=== PATIENT | female | born 1960 | race Asian ===

== ENCOUNTER 2023-02-10 20:50 | Emergency (ER) | payer SELFPAY ==
[~2023-02-10] VITALS: Ht 165.1 cm; Wt 54.4 kg
--- NOTE | 2023-02-10 21:15 | NUR ---
BIBFAMILY C/O HIGH BLOOD PRESSURE, DO NOT TAKE BP MEDS AT HOME
[2023-02-10 22:02] LABS: BASOPHILS % (AUTO) 0.7 % (0.0-2.0); HEMATOCRIT 44 % (33-45); HEMOGLOBIN 14.7 g/dL (11.5-14.8); LYMPHOCYTES # (AUTO) 1.6 K/uL (0.8-4.8); LYMPHOCYTES % (AUTO) 25.4 % (20.0-44.0); MEAN CORPUSCULAR HGB CONC 33 g/dl (31.0-36.0); MEAN CORPUSCULAR VOLUME 92 fL (82-100); MONOCYTES # (AUTO) 0.4 K/uL (0.1-1.30); MONOCYTES % (AUTO) 6.7 % (2.0-12.0); NEUTROPHILS # (AUTO) 4.1 K/uL (1.8-8.9); NEUTROPHILS % (AUTO) 66.2 % (43.0-81.0); PLATELET COUNT (AUTO) 264 K/uL (150-450); RED BLOOD CELL COUNT(AUTO) 4.83 MIL/uL (4.0-5.2); WHITE BLOOD COUNT (AUTO) 6.2 K/uL (4.3-11.0)
--- NOTE | 2023-02-10 22:10 | NUR ---
BP now down to 188/89. HR:75
[2023-02-10] MEDS ORDERED: hydrALAZINE HCL IV 20 MG VIAL IV ONE (22:30)
[2023-02-10 22:35] LABS: CALCIUM, SERUM 9.4 mg/dL (8.5-10.1); CARBON DIOXIDE 26 mmol/L (21-32); CHLORIDE 97 mmol/L (98-107); CREATININE 0.5 mg/dL (0.6-1.3); GLUCOSE 104 mg/dL (74-106); POTASSIUM 4.2 mmol/L (3.5-5.1); SODIUM SERUM 133 mmol/L (136-145); UREA NITROGEN, BLOOD 11 mg/dL (7-18)
[2023-02-10] MEDS ORDERED: hydrALAZINE HCL IV 20 MG VIAL ONE (22:46)
[2023-02-10] MEDS ORDERED: WATER FOR INJECTION,STERILE 10 ML ONE (22:49)
[2023-02-10] MEDS ORDERED: AMLO10TA4 PO (23:14)
--- NOTE | 2023-02-10 23:41 | NUR ---
Rewdness to bilateral palms noted and pt c/o of rt eye twitching. Dr. Wade aware. Benardryl po benadryl ordered and order carried out.
[2023-02-10] MEDS ORDERED: diphenhydrAMINE HCL 25 MG CAPSULE ONE (23:47)
[2023-02-11] MEDS ORDERED: DIPHENHYDRAMINE HCL 12.5 MG/5 ML UDC PO ONE
[2023-02-11 00:42] VITALS: BP 160/84
--- NOTE | 2023-02-11 00:42 | NUR ---
Patient discharged to home in stable condition. Written and verbal after care instructions given. Patient verbalizes understanding of instruction.
== END 2023-02-11 00:43 | disposition home or self-care (01) ==
LOC: ER 21:06
DX: I10 Essential (primary) hypertension (principal); Z98.890 Other specified postprocedural states; Z88.1 Allergy status to other antibiotic agents
CPT/HCPCS: 99285; 96374; 71045; 93005; 85025; 80048; 36415; 84484; Q0163 ×2; J0360

== ENCOUNTER 2023-02-12 12:38 | Emergency (ER) | payer BC ==
[~2023-02-12] VITALS: Ht 165.1 cm; Wt 52.6 kg
[~2023-02-12 12:38] MED LIST: AMLO10TA4 PO
--- NOTE | 2023-02-12 12:57 | NUR ---
emt at bedside for EKG pt attached to bedside monitor
[2023-02-12 14:19] VITALS: BP 145/87
--- NOTE | 2023-02-12 14:29 | NUR ---
Patient discharged to home in stable condition, ambulating. Written and verbal after care instructions given. Patient verbalizes understanding of instruction.
== END 2023-02-12 14:29 | disposition home or self-care (01) ==
LOC: ER 12:47
DX: I10 Essential (primary) hypertension (principal); Z98.890 Other specified postprocedural states; Z79.899 Other long term (current) drug therapy; Z88.1 Allergy status to other antibiotic agents